=== PATIENT | female | born 1950 | race Caucasian/White ===

== ENCOUNTER 2016-10-29 15:39 | Emergency (ER) | payer OTHER ==
[~2016-10-29] VITALS: Ht 157.5 cm; Wt 49.0 kg
[2016-10-29 15:47] VITALS: BP 175/75
--- NOTE | 2016-10-29 16:31 | ED UPPER/LOWER EXTREMITY COMPL ---
History of Present Illness General Chief Complaint: Shoulder Injury Stated Complaint: SHOULDER INJURY Source: patient Exam Limitations: no limitations Vital Signs & Intake/Output Vital Signs & Intake/Output Vital Signs Date Time Temp Pulse Resp B/P Pulse O2 O2 Flow FiO2 Ox Delivery Rate 10/29 1547 98.3 102 18 175/75 98 Room Air Allergies Coded Allergies: No Known Allergies (10/29/16) Reconcile Medications Diazepam (Valium) 5 MG TABLET 1 TAB PO BIDP PRN MUSCLE RELAXOR Triage Note: RECEIVED 66 YO FEMALE C/O SEVERE RIGHT SHOULDER PAIN. PT WAS ROLLERSKATING AND TRIPPED AND FELL ON RIGHT SHOULDER. PT UNABLE TO MOVE RIGHT SHOULDER OR RIGHT ARM. RIGHT SHOULDER DEFORMITY Triage Nurses Notes Reviewed? yes Onset: Abrupt Duration: constant Timing: single episode today Severity: severe Severity Numbers: 10 Pain/Injury Location: Right: Shoulder. Method of Injury: fall HPI: Patient is a 66-year-old female with past medical history of hypertension chronic neck pain and fibromyalgia who is in pain management who presents to emergency room stating that today while stepping down a step while wearing rollerskates she slipped and fell and struck the right lateral aspect of her shoulder to the ground resulting in acute onset of sharp stabbing severe pain. Denies any head strike denies any elbow pain or neck pain. Past History Travel History Traveled to [place] past 21 day No Medical History Any Pertinent Medical History? see below for history Neurological: NONE EENT: NONE Cardiovascular: hypertension Respiratory: COPD Gastrointestinal: GERD, hiatal hernia Hepatic: NONE Renal: NONE Musculoskeletal: NONE Psychiatric: NONE Endocrine: NONE Blood Disorders: NONE Cancer(s): NONE Surgical History Surgical History: non-contributory Psychosocial History What is your primary language Estonian Tobacco Use: Current Daily Use Daily Tobacco Use Amount/Type: => 5 Cigarettes daily Family History Hx Contributory? No Review of Systems Review of Systems Constitutional: Reports: no symptoms. EENTM: Reports: no symptoms. Respiratory: Reports: no symptoms. Cardiovascular: Reports: no symptoms. Gastrointestinal/Abdominal: Reports: no symptoms. Genitourinary: Reports: no symptoms. Musculoskeletal: Reports: see HPI, joint pain. Skin: Reports: no symptoms. Neurological/Psychological: Reports: no symptoms. Hematologic/Endocrine: Reports: no symptoms. Immunological: Reports: no symptoms. All Other Systems: Reviewed and Negative Physical Exam Physical Exam General Appearance: mild distress Head: atraumatic Neurologic/Tendon: normal sensation, normal motor functions, normal tendon functions, responds to pain, no evidence tendon injury Skin: intact, normal color, warm/dry Comments: HEENT: Atraumatic, extraocular motion intact Neck: Supple, no lymphadenopathy Back: Nontender Respiratory: No respiratory distress Extremities: Right shoulder noted gross deformity Right elbow nontender full active range of motion Right upper extremity dermatomes intact radial pulse +2 capillary refill intact Right wrist nontender full active range of motion Neuro: Alert and oriented x3 Psych: Mood affect normal, normal memory normal judgment. Diagram Shoulders Front/Back 1) Noted step-off deformity and ecchymosis severe point tenderness and skin impingement however no skin break mild tenting noted Progress Differential Diagnosis: arterial insufficiency, compartment syndrome, contusion, dislocation, DVT, fracture, gout, septic arthritis, sprain, tendon injury Plan of Care: Orders Procedure Date/time Status Durable Medical Equipment 10/29 1912 Active Patient does have concerns of transverse proximal humeral fracture of the right I discussed patient's physical presentation with Dr. Bolanos who advised patient to have axial load placement to improve the impingement of the skin Patient was given morphine initially with no change in symptoms of pain then patient was given Dilaudid with minimal change in which then IV fentanyl and Valium was administered and then with the assistance of Dr. Sandhu we applied axial load inferior pressure from the elbow which completely resolved the impingement and tenting. Patient tolerated well x-rays showed significant improvement in alignment of the humeral fracture. PRE and post neurovascular was intact Shoulder immobilizer was placed Patient was strongly advised to follow up with orthopedic Dr. Bolanos tomorrow and she will comply Upon discharge patient looks well no apparent distress and will comply with discharge instructions and had no questions (KIERRA DUNBAR,SACHA) Diagnostic Imaging: Viewed by Me: Radiology Read. Radiology Impression: acute abnormality, fracture Comments: PATIENT: SAKSHI STEWART PRESENT AGE: 66 PATIENT ACCOUNT NO: [id number] : 51 LOCATION: [facility] ORDERING PHYSICIAN: SACHA DUNBAR SERVICE DATE: 10/29/161602 EXAM TYPE: RAD - XRY-HUMERUS, RIGHT EXAMINATION: XR HUMERUS, RIGHT CLINICAL INFORMATION: Right upper extremity pain and deformity. COMPARISON: Right shoulder radiographs 10/29/2016. TECHNIQUE: AP and lateral views of the right humerus. FINDINGS: Acute oblique fracture through the surgical neck of the right humerus is redemonstrated with varus and posterior angulation at the fracture site. The distal humerus is unremarkable. There is tenting of the skin at the site of the fracture and it is unclear on the basis of this examination whether there is an open fracture. IMPRESSION: An acute oblique fracture through the surgical neck of the right humerus is redemonstrated with varus and posterior angulation at the site of the fracture. There is tenting of the skin at the site of the fracture and it is unclear on this examination whether there is an open fracture. PATIENT: SAKSHI STEWART PRESENT AGE: 66 PATIENT ACCOUNT NO: [id number] : 51 LOCATION: [facility] ORDERING PHYSICIAN: SACHA DUNBAR SERVICE DATE: 10/29/16 EXAM TYPE: RAD - XRY-SHOULDER COMPLETE-RIGHT EXAMINATION: XR SHOULDER, RIGHT CLINICAL INFORMATION: Shoulder pain. Deformity. COMPARISON: None TECHNIQUE: Two views of the right shoulder. FINDINGS: There is a oblique fracture of the proximal shaft of the humerus just proximal to the surgical neck. The fracture is slightly displaced and angulated. Humeral head has a normal articulation with the glenoid. The acromioclavicular joint and the right clavicle are normal. IMPRESSION: Oblique fracture of the proximal right humerus. Departure Departure Disposition: HOME OR SELF CARE Condition: Stable Clinical Impression Primary Impression: Right humeral fracture Referrals: MADELINE BOLANOS MD PATIENT HAS NO PRIMARY CARE DR (PCP/Family) Additional Instructions: As discussed tomorrow please call orthopedic Dr. Bolanos for further evaluation treatment. Begin icing the area directly 20 minutes every 2 hours continue home medications as directed especially your pain medications. Begin the prescription of Valium for muscle relaxation. Prescriptions are waiting at [facility] pharmacy. If symptoms worsen return to emergency room. Continue to use the shoulder immobilizer for support instability. Departure Forms: Customer Survey General Discharge Information Prescriptions: Current Visit Scripts Diazepam (Valium) 1 TAB PO BIDP PRN MUSCLE RELAXOR #8 TAB
--- NOTE | 2016-10-29 16:40 | RADIOLOGY REPORT ---
EXAMINATION: XR SHOULDER, RIGHT CLINICAL INFORMATION: Shoulder pain. Deformity. COMPARISON: None TECHNIQUE: Two views of the right shoulder. FINDINGS: There is a oblique fracture of the proximal shaft of the humerus just proximal to the surgical neck. The fracture is slightly displaced and angulated. Humeral head has a normal articulation with the glenoid. The acromioclavicular joint and the right clavicle are normal. IMPRESSION: Oblique fracture of the proximal right humerus.
--- NOTE | 2016-10-29 16:55 | RADIOLOGY REPORT ---
EXAMINATION: XR HUMERUS, RIGHT CLINICAL INFORMATION: Right upper extremity pain and deformity. COMPARISON: Right shoulder radiographs 10/29/2016. TECHNIQUE: AP and lateral views of the right humerus. FINDINGS: Acute oblique fracture through the surgical neck of the right humerus is redemonstrated with varus and posterior angulation at the fracture site. The distal humerus is unremarkable. There is tenting of the skin at the site of the fracture and it is unclear on the basis of this examination whether there is an open fracture. IMPRESSION: An acute oblique fracture through the surgical neck of the right humerus is redemonstrated with varus and posterior angulation at the site of the fracture. There is tenting of the skin at the site of the fracture and it is unclear on this examination whether there is an open fracture.
--- NOTE | 2016-10-29 19:02 | RADIOLOGY REPORT ---
EXAMINATION: XR SHOULDER, RIGHT CLINICAL INFORMATION: Status post axial loading. Humeral fracture. COMPARISON: X-ray from earlier in the evening on 10/29/2016. TECHNIQUE: 2 frontal views of the right shoulder and a scapular Y-view of the right shoulder. FINDINGS: A complex oblique fracture through the proximal shaft of the humerus is again visible. There is increased angulation across the fracture site with tilting of the humeral head at the glenohumeral articulation. No dislocation is evident. The joint space is widened. Soft tissue deformity is noted. The acromioclavicular joint is intact with mild degenerative changes. The imaged right lung is clear. No displaced rib fractures are seen. IMPRESSION: Oblique fracture through the proximal right humerus with slightly increased angulation across the fracture site. Apparent widening of the joint space with possible mild posterior subluxation at the glenohumeral articulation on the scapular Y-view.
[2016-10-29] MEDS ORDERED: VALIUM5 M2 PO (19:11)
[2016-11-04] MEDS ORDERED: FENTANYL1 EAC4 TOP (15:55)
[2016-11-04] MEDS ORDERED: LISINOPRIL10 M1 PO (15:55)
[2016-11-04] MEDS ORDERED: OXYCODONE HCL10 M2 PO (15:55)
[2016-11-04] MEDS ORDERED: CYCLOBENZAPRINE10 M1 PO (15:56)
[2016-11-04] MEDS ORDERED: NEURONTIN300 M1 PO (15:56)
[2016-11-04] MEDS ORDERED: ASPIRIN EC81 M1 PO (15:56)
--- NOTE | 2016-11-13 16:21 | RADIOLOGY REPORT ---
EXAMINATION: XR SHOULDER, RIGHT CLINICAL INFORMATION: Shoulder fracture repair. COMPARISON: None TECHNIQUE: 10 intraoperative spot imaging was performed under direction of the operating orthopedic surgeon . FINDINGS: these images demonstrate fracture reduction and plate and screw fixation of the previously noted proximal humerus fracture. The alignment is improved compared with the preoperative examination no new abnormalities. IMPRESSION: Intraoperative spot imaging obtained during reduction and orthopedic fixation of previously noted proximal humerus fracture
== END 2016-10-29 19:22 ==
LOC: ERH 15:39
DX: S72.331A Displaced oblique fracture of shaft of right femur, initial encounter for closed fracture (principal); V00.121A Fall from non-in-line roller-skates, initial encounter; Y93.51 Activity, roller skating (inline) and skateboarding; Y92.9 Unspecified place or not applicable
CPT/HCPCS: 73030-RT; 73060-RT; 96372; 96374; 96375; J3360

== ENCOUNTER → 2016-11-13 | Day surgery (SDC) | payer OTHER ==
[~2016-11-13] VITALS: Ht 157.5 cm; Wt 49.0 kg
[~2016-11-13] MED LIST: ASPIRIN EC81 M1 PO; CYCLOBENZAPRINE10 M1 PO; FENTANYL1 EAC4 TOP; LISINOPRIL10 M1 PO; NEURONTIN300 M1 PO; OXYCODONE HCL10 M2 PO; VALIUM5 M2 PO
--- NOTE | 2016-11-13 13:28 | Operative Report ---
Operative/Inv Procedure Report Surgery Date: 11/13/16 Name of Procedure: Right proximal humerus open reduction internal fixation Pre-Operative Diagnosis: Right proximal humerus fracture Post-Operative Diagnosis: Right proximal humerus fracture Estimated Blood Loss: 50ml to 100ml Surgeon/Raisin Washer: WILDER MONTES,MADELINE DNUBAR Anesthesia: general endotracheal tube, block Implants: [employer] ALPS proximal humerus plating system Low humerus 4 hole plate Complications: None Condition: Stable to PACU Operative Indication: This is a 66-year-old female who injured her right shoulder after a fall. X-ray showed a completely displaced surgical neck proximal humerus fracture. Risks and benefits of the procedure were discussed with the patient at length. Risks include but are not limited to nerve damage, muscle damage, infection, blood loss, blood clots, pulmonary embolus, and even . The patient agreed to the above risks and elected to proceed with surgery. Operative/Procedure Note Note: The patient was placed on the operating table and general anesthesia was induced by the anesthesia team. The patient was then positioned into the beachchair position. The upper extremity was prepped and draped in the normal sterile fashion. The patient received IV antibiotics prior to incision. A timeout was performed and the site marking was visualized prior to incision. An incision was then made just lateral to the coracoid extending distally toward the axillary fold. A deltopectoral approach was then performed. Any bleeding vessels were identified and cauterized. The cephalic vein was then identified and released. It was retracted in order to get access to the deltopectoral groove. Blunt dissection was then performed to split the deltoid and pectoralis muscle tendons. Adhesions deep to the deltoid were then freed up with blunt dissection. The pectoralis major tendon was then released of the proximal third of its insertion with a Bovie. Fracture hematoma was evacuated. There is significant bursal tissue which was taken down from the proximal humerus. Early callus formation was also taken down. An elevator was used to free up the biceps tendon which was incarcerated the fracture site. The fracture was then reduced. A proximal humerus locking plate was then applied and K wires were used to hold the fracture reduced as well as to reduce the plate to the bone. A cortical screw was drilled and then filled in the oblong hole of the distal portion of the plate. The proximal portion of the plate was then filled with several smooth pins after they were were drilled and measured. 2 locking shaft screws were then applied with the use of the fast guides. The shoulder was taken through a range of motion and noted to be quite stable. Fluoroscopy was used to ensure that there is no proud screws. One of the shaft locking screws was switched out as it was slightly proud. The wound was copiously irrigated. The deltoid fascia was closed with 0 Vicryl suture. The skin was closed with 2-0 Vicryl suture and a running subcuticular 4 -0 Monocryl and Dermabond. A dry sterile dressing was applied. The patient was transferred to PACU in stable condition.
== END ==
LOC: STS 11-06 07:00
DX: S42.291A Other displaced fracture of upper end of right humerus, initial encounter for closed fracture (principal); W19.XXXA Unspecified fall, initial encounter; J44.9 Chronic obstructive pulmonary disease, unspecified; F17.200 Nicotine dependence, unspecified, uncomplicated; I10 Essential (primary) hypertension; G47.33 Obstructive sleep apnea (adult) (pediatric)
CPT/HCPCS: C1713; J0131; J0690; J2250